=== PATIENT | male | born 1990 | race Caucasian/White ===

== ENCOUNTER 2016-09-01 07:32 | Emergency (ER) | payer MEDICAID ==
[~2016-09-01] VITALS: Ht 175.3 cm; Wt 98.0 kg
[2016-09-01] MEDS ORDERED: ONDANSETRON 4MG ODT PO STA (07:57)
[2016-09-01] MEDS ORDERED: LORAZEPAM 1MG TABLET PO ONE (08:00)
[2016-09-01 08:17] LABS: BASOPHILS % 0.5 % (0.0-2.0); EOSINOPHILS % 5.5 % (0.0-5.0); HEMATOCRIT. 52.5 % (42.0-52.0); HEMOGLOBIN. 18.2 g/dL (14.0-18.0); LYMPHOCYTES % 22.4 % (20.0-50.0); MEAN CORPUSCULAR HEMOGLOBIN 30.2 pg (28.0-32.0); MEAN PLATELET VOLUME 8.3 fl (7.4-10.4); MONOCYTES % 7.5 % (2.0-8.0); NEUTROPHILS % 64.1 % (40.0-76.0); PLATELET 207 x1000/uL (130-400); RED BLOOD CELL COUNT 6.03 mill/uL (4.7-6.1); RED CELL DISTRIBUTION WIDTH 13.7 % (11.6-14.6)
[2016-09-01 08:21] LABS: CHLORIDE 107 mEq/L (98-107)
[2016-09-01 08:30] LABS: CARBON DIOXIDE 25 mEq/L (21-32)
[2016-09-01 08:33] VITALS: BP 151/94
[2016-09-01 10:37] LABS: CLARITY URINE CLEAR (CLEAR); COLOR URINE YELLOW (YELLOW); GLUCOSE URINE NEGATIVE (NEGATIVE); KETONES URINE NEGATIVE (NEGATIVE); LEUKOCYTE ESTERASE URINE NEGATIVE (NEGATIVE); NITRITE URINE NEGATIVE (NEGATIVE); OCCULT BLOOD URINE 1+ (NEGATIVE); PROTEIN URINE 3+ (NEGATIVE); SPECIFIC GRAVITY URINE 1.016 (1.005-1.030); UROBILINOGEN URINE 0.2 E.U./dL (0.2-1.0)
== END 2016-09-01 11:42 | disposition home or self-care (01) ==
LOC: ER 08:34
DX: F41.1 Generalized anxiety disorder (principal); R50.9 Fever, unspecified; R10.9 Unspecified abdominal pain; I10 Essential (primary) hypertension; K76.0 Fatty (change of) liver, not elsewhere classified; N28.1 Cyst of kidney, acquired; K82.4 Cholesterolosis of gallbladder; R79.89 Other specified abnormal findings of blood chemistry; F17.210 Nicotine dependence, cigarettes, uncomplicated; F12.90 Cannabis use, unspecified, uncomplicated
CPT/HCPCS: 36415; 71010; 76705; 80053; 81001; 83690; 85025; 93005; 99285; Q0162; Z7610

== ENCOUNTER 2019-05-01 21:56 | Inpatient (IN) | payer BC, MEDICAID ==
[~2019-05-01] VITALS: Ht 175.3 cm; Wt 113.9 kg
[2019-05-01] MEDS ORDERED: SODIUM CHLORIDE 0.9% 1,000 ML IV ONE (22:31)
[2019-05-01] MEDS ORDERED: ONDANSETRON HCL 4MG/2ML INJ IV STA (22:31)
[2019-05-01 22:57] LABS: HEMATOCRIT. 50.1 % (42.0-52.0); HEMOGLOBIN. 16.9 g/dL (14.0-18.0); MEAN CORPUSCULAR HEMOGLOBIN 31.4 pg (28.0-32.0); MEAN CORPUSCULAR VOLUME 93.2 fL (80.0-94.0); MEAN PLATELET VOLUME 8.6 fl (7.4-10.4); PLATELET 209 x1000/uL (130-400); RED BLOOD CELL COUNT 5.38 mill/uL (4.7-6.1); RED CELL DISTRIBUTION WIDTH 13.3 % (11.6-14.6)
[2019-05-01] MEDS ORDERED: MORPHINE SULFATE 4 MG/ML CPJ (NOT FOR IM USE) IV ONE (23:00)
[2019-05-01] MEDS ORDERED: FAMOTIDINE 20MG/2ML VIAL IV ONE (23:00)
[2019-05-01 23:04] LABS: CHLORIDE 108 mEq/L (98-107)
[2019-05-01 23:05] LABS: INR 1.1; PROTHROMBIN TIME 10.9 sec (9.6-11.0)
[2019-05-01 23:10] LABS: ETHANOL BLOOD < 10 mg/dL
[2019-05-01 23:16] LABS: PLATELET ESTIMATE NORMAL
[2019-05-01] MEDS ORDERED: SODIUM CHLORIDE 0.9% 1000ML BAG (SEPSIS BOLUS) IV ONE (23:30)
[2019-05-01] MEDS ORDERED: PIPERACILLIN/TAZ 3.375G PREMIX 50 ML IV ONE (23:30)
[2019-05-01 23:53] LABS: CLARITY URINE CLEAR (CLEAR); COLOR URINE YELLOW (YELLOW); KETONES URINE TRACE (NEGATIVE); LEUKOCYTE ESTERASE URINE TRACE (NEGATIVE); NITRITE URINE NEGATIVE (NEGATIVE); OCCULT BLOOD URINE 1+ (NEGATIVE); PROTEIN URINE 3+ (NEGATIVE); SPECIFIC GRAVITY URINE 1.024 (1.005-1.030)
[2019-05-02 00:16] LABS: *BARBITURATES SCREEN URINE NEGATIVE (NEGATIVE); *BENZODIAZEPINES SCREEN URINE NEGATIVE (NEGATIVE); *COCAINE SCREEN URINE NEGATIVE (NEGATIVE); METHADONE URINE SCREEN NEGATIVE (NEGATIVE); OPIATES URINE SCREEN PRESUMTIVE POSITIVE (NEGATIVE); PHENCYCLIDINE URINE SCREEN NEGATIVE (NEGATIVE)
[2019-05-02 00:17] LABS: *AMPHETAMINES SCREEN URINE NEGATIVE (NEGATIVE); CANNABINOID URINE SCREEN PRESUMTIVE POSITIVE (NEGATIVE)
[2019-05-02] MEDS ORDERED: LEVOFLOXACIN 500MG PREMIX 100 ML IV NR (01:00)
[2019-05-02] MEDS: ONDANSETRON HCL 4MG/2ML INJ IV PRN ×2 (01:30→09:49)
[2019-05-02] MEDS: MORPHINE SULFATE 2 MG/ML CPJ (NOT FOR IM USE) IV PRN ×6 (01:30→21:51)
[2019-05-02 02:50] VITALS: BP 126/71
[2019-05-02] MEDS ORDERED: TOPUD PO (04:09)
[2019-05-02] MEDS ORDERED: CIPR500S3 PO (04:09)
[2019-05-02] MEDS ORDERED: OLME40TA18 PO (04:09)
[2019-05-02] MEDS ORDERED: AMLO10TA80 PO (04:09)
[2019-05-02] MEDS ORDERED: METR500T PO (04:09)
[2019-05-02 04:32] VITALS: BP 126/71
[2019-05-02] MEDS: DEXT 5%/0.45% NACL 1000ML 1,000 ML IV SCH ×2 (04:38→21:51)
[2019-05-02] MEDS: ACETAMINOPHEN 650MG SUPP PR PRN (04:38)
[2019-05-02] MEDS: METRONIDAZOLE 500 MG PREMIX 100 ML IV SCH ×4 (05:39→23:37)
[2019-05-02 08:00] VITALS: BP 139/73
[2019-05-02 12:00] VITALS: BP 145/76
[2019-05-02 16:00] VITALS: BP 128/67
[2019-05-02] MEDS: ACETAMINOPHEN 325MG TABLET PO PRN (19:49)
[2019-05-02 20:00] VITALS: BP 123/69
[2019-05-03] VITALS (7 sets, daily range): BP systolic 123–161; BP diastolic 72–86
[2019-05-03] MEDS ORDERED: LEVOFLOXACIN 500MG PREMIX 100 ML IV SCH (01:00)
[2019-05-03] MEDS: MORPHINE SULFATE 2 MG/ML CPJ (NOT FOR IM USE) IV PRN ×9 (01:07→22:48)
[2019-05-03] MEDS: LEVOFLOXACIN 500MG PREMIX 100 ML IV SCH (02:14)
[2019-05-03] MEDS: ACETAMINOPHEN 325MG TABLET PO PRN ×2 (04:31→20:12)
[2019-05-03] MEDS: METRONIDAZOLE 500 MG PREMIX 100 ML IV SCH ×3 (05:03→21:32)
[2019-05-03 07:28] LABS: HEMATOCRIT. 43.4 % (42.0-52.0); HEMOGLOBIN. 14.6 g/dL (14.0-18.0); MEAN CORPUSCULAR HEMOGLOBIN 31.7 pg (28.0-32.0); MEAN PLATELET VOLUME 8.5 fl (7.4-10.4); PLATELET 183 x1000/uL (130-400); RED BLOOD CELL COUNT 4.62 mill/uL (4.7-6.1); RED CELL DISTRIBUTION WIDTH 13.1 % (11.6-14.6)
[2019-05-03 08:49] LABS: CHLORIDE 110 mEq/L (98-107)
[2019-05-03] MEDS: ACETAMINOPHEN 650MG SUPP PR PRN (12:36)
[2019-05-03 13:05] LABS: PLATELET ESTIMATE NORMAL
[2019-05-03] MEDS: ONDANSETRON HCL 4MG/2ML INJ IV PRN (20:27)
[2019-05-03] MEDS: DEXT 5%/0.45% NACL 1000ML 1,000 ML IV SCH (21:32)
[2019-05-04] VITALS: BP 115/57
[2019-05-04] MEDS: LEVOFLOXACIN 500MG PREMIX 100 ML IV SCH (00:06)
[2019-05-04] MEDS: ONDANSETRON HCL 4MG/2ML INJ IV PRN ×3 (03:34→21:48)
[2019-05-04] MEDS: MORPHINE SULFATE 2 MG/ML CPJ (NOT FOR IM USE) IV PRN ×5 (03:34→21:49)
[2019-05-04] MEDS: ACETAMINOPHEN 325MG TABLET PO PRN ×3 (03:34→17:45)
[2019-05-04 04:00] VITALS: BP 124/66
[2019-05-04] MEDS: DEXT 5%/0.45% NACL 1000ML 1,000 ML IV SCH ×2 (05:40→19:40)
[2019-05-04] MEDS: METRONIDAZOLE 500 MG PREMIX 100 ML IV SCH ×3 (05:40→21:18)
[2019-05-04 07:18] LABS: HEMATOCRIT. 44.5 % (42.0-52.0); HEMOGLOBIN. 14.7 g/dL (14.0-18.0); MEAN CORPUSCULAR VOLUME 93.8 fL (80.0-94.0); MEAN PLATELET VOLUME 8.3 fl (7.4-10.4); PLATELET 209 x1000/uL (130-400); RED BLOOD CELL COUNT 4.74 mill/uL (4.7-6.1); RED CELL DISTRIBUTION WIDTH 13.3 % (11.6-14.6)
[2019-05-04 08:00] VITALS: BP 126/68
[2019-05-04 08:13] LABS: CHLORIDE 111 mEq/L (98-107)
[2019-05-04 09:44] LABS: PLATELET ESTIMATE NORMAL
[2019-05-04 12:00] VITALS: BP 123/65
[2019-05-04 16:00] VITALS: BP 125/64
[2019-05-04 20:00] VITALS: BP 131/109
[2019-05-05] VITALS: BP 143/43
[2019-05-05] MEDS: LEVOFLOXACIN 500MG PREMIX 100 ML IV SCH (00:06)
[2019-05-05] MEDS: ONDANSETRON HCL 4MG/2ML INJ IV PRN ×2 (02:31→23:44)
[2019-05-05] MEDS: MORPHINE SULFATE 2 MG/ML CPJ (NOT FOR IM USE) IV PRN ×5 (02:31→23:45)
[2019-05-05 04:00] VITALS: BP 131/75
[2019-05-05] MEDS: METRONIDAZOLE 500 MG PREMIX 100 ML IV SCH ×3 (05:56→21:06)
[2019-05-05 08:00] VITALS: BP 136/74
[2019-05-05 08:03] LABS: HEMATOCRIT. 43.1 % (42.0-52.0); HEMOGLOBIN. 14.4 g/dL (14.0-18.0); MEAN CORPUSCULAR HEMOGLOBIN 31.2 pg (28.0-32.0); MEAN CORPUSCULAR VOLUME 93.1 fL (80.0-94.0); MEAN PLATELET VOLUME 7.9 fl (7.4-10.4); PLATELET 229 x1000/uL (130-400); RED BLOOD CELL COUNT 4.63 mill/uL (4.7-6.1); RED CELL DISTRIBUTION WIDTH 13.1 % (11.6-14.6)
[2019-05-05 08:08] LABS: CHLORIDE 110 mEq/L (98-107)
[2019-05-05] MEDS: DEXT 5%/0.45% NACL 1000ML 1,000 ML IV SCH ×2 (10:57→23:45)
[2019-05-05 12:00] VITALS: BP 140/75
[2019-05-05 13:20] LABS: PLATELET ESTIMATE NORMAL
[2019-05-05 16:00] VITALS: BP 138/72
[2019-05-05] MEDS: ACETAMINOPHEN 325MG TABLET PO PRN (18:09)
[2019-05-05 20:00] VITALS: BP 132/68
[2019-05-06] VITALS: BP 116/65
[2019-05-06] MEDS: LEVOFLOXACIN 500MG PREMIX 100 ML IV SCH (02:08)
[2019-05-06] MEDS: MORPHINE SULFATE 2 MG/ML CPJ (NOT FOR IM USE) IV PRN ×5 (03:58→23:46)
[2019-05-06 04:00] VITALS: BP 122/62
[2019-05-06] MEDS: METRONIDAZOLE 500 MG PREMIX 100 ML IV SCH ×3 (05:01→21:32)
[2019-05-06 08:00] VITALS: BP 121/77
[2019-05-06] MEDS: DEXT 5%/0.45% NACL 1000ML 1,000 ML IV SCH ×2 (12:16→23:46)
[2019-05-06] MEDS: ONDANSETRON HCL 4MG/2ML INJ IV PRN ×2 (16:18→23:46)
[2019-05-06 20:00] VITALS: BP 132/68
[2019-05-07] VITALS: BP 118/64
[2019-05-07] MEDS: LEVOFLOXACIN 500MG PREMIX 100 ML IV SCH (00:47)
[2019-05-07] MEDS: MORPHINE SULFATE 2 MG/ML CPJ (NOT FOR IM USE) IV PRN ×3 (01:51→08:40)
[2019-05-07 04:00] VITALS: BP 127/66
[2019-05-07] MEDS: METRONIDAZOLE 500 MG PREMIX 100 ML IV SCH (05:02)
[2019-05-07 08:00] VITALS: BP 116/66
[2019-05-07 10:55] VITALS: BP 116/66
== END 2019-05-07 11:55 | disposition home or self-care (01) | DRG 392 ==
LOC: ER 21:56 → EDBEDREQSVC 05-02 00:04 → ENRESERV 05-02 01:33 → 7WST 05-02 03:38
PROVIDERS: ADMIT Hospitalist; ATTEND Hospitalist
DX: K57.20 Diverticulitis of large intestine with perforation and abscess without bleeding (principal); N17.9 Acute kidney failure, unspecified; F12.90 Cannabis use, unspecified, uncomplicated; F41.9 Anxiety disorder, unspecified; I12.9 Hypertensive chronic kidney disease with stage 1 through stage 4 chronic kidney disease, or unspecified chronic kidney disease; N18.9 Chronic kidney disease, unspecified; N28.1 Cyst of kidney, acquired; D72.829 Elevated white blood cell count, unspecified; K59.00 Constipation, unspecified; Z82.49 Family history of ischemic heart disease and other diseases of the circulatory system
CPT/HCPCS: 36415; 74018; 74176; 80053; 80305; 80320; 81003; 83605; 83735; 85025; 86850; 86900; 93005; 96365; 96367; 96375; 99291; J1956; J2270; J2405; J2543; J3490; J7030; G0480

== ENCOUNTER 2022-11-28 01:48 | Emergency (ER) | payer BC, MEDICAID ==
[~2022-11-28] VITALS: Ht 175.3 cm; Wt 105.0 kg
[~2022-11-28 01:48] MED LIST: AMLO10TA80 PO; CIPR500S3 PO; OLME40TA18 PO; TOPUD PO
[2022-11-28 01:57] VITALS: BP 126/79; PULSE 60; RESP 16; TEMP 98.6; O2SAT 99
[2022-11-28] MEDS ORDERED: ASPIRIN 325MG EC TABLET PO ONE (02:15)
[2022-11-28] MEDS ORDERED: ONDANSETRON HCL 4MG/2ML INJ IV ONE (02:15)
[2022-11-28] MEDS ORDERED: MORPHINE SULFATE 4 MG/ML CPJ (NOT FOR IM USE) IV ONE ×2 (02:15→06:30)
[2022-11-28 03:00] LABS: BASOPHILS % 0.7 % (0.0-2.0); EOSINOPHILS % 2.1 % (0.0-5.0); HEMATOCRIT. 48.7 % (42.0-52.0); HEMOGLOBIN. 16.6 g/dL (14.0-18.0); LYMPHOCYTES % 21.3 % (20.0-50.0); MEAN CORPUSCULAR HEMOGLOBIN 32.1 pg (28.0-32.0); MEAN CORPUSCULAR HGB CONC 34.1 g/dL (31.0-37.0); MEAN CORPUSCULAR VOLUME 94.2 fL (80.0-94.0); MEAN PLATELET VOLUME 7.8 fl (7.4-10.4); MONOCYTES % 10.6 % (2.0-8.0); NEUTROPHILS % 65.3 % (40.0-76.0); PLATELET 222 x1000/uL (130-400); RED BLOOD CELL COUNT 5.17 mill/uL (4.7-6.1); RED CELL DISTRIBUTION WIDTH 13.5 % (11.6-14.6); WHITE BLOOD COUNT 7.7 x1000/uL (4.5-11.0)
[2022-11-28 03:09] LABS: CHLORIDE 107 mEq/L (98-107); INDEX HEMOLYSI 1 (1-3); INDEX ICTERIC 1 (1-4); INDEX LIPEMIC 1 (1-3); POTASSIUM 4.5 mEq/L (3.5-5.1); SODIUM 135 mEq/L (136-145)
[2022-11-28 03:19] LABS: ALANINE AMINOTRANSFERASE 39 IU/L (13-61); ALBUMIN 3.3 g/dL (3.4-5.0); ASPARTATE AMINOTRANSFERASE 22 IU/L (15-37); BILIRUBIN TOTAL 0.4 mg/dL (0.1-1.0); CALCIUM 8.6 mg/dL (8.5-10.1); CARBON DIOXIDE 25 mEq/L (21-32); CREATININE 2.3 mg/dL (0.6-1.3); ETHANOL BLOOD < 10 mg/dL (-10); GLUCOSE 109 mg/dL (70-105); NT PRO B-TYPE NATRIURETIC PEP 100 pg/mL (5-125); PROTEIN TOTAL 7.9 g/dL (6.0-8.3); TROPONIN I HIGH SENSITIVITY 5 ng/L (<78); UREA NITROGEN BLOOD 26 mg/dL (7-21)
[2022-11-28 03:53] LABS: INDEX HEMOLYSI 1 (1-3)
[2022-11-28 03:56] LABS: AMYLASE 185 IU/L (25-115)
[2022-11-28] MEDS ORDERED: MORPHINE SULFATE 4 MG/ML CPJ (NOT FOR IM USE) IV NR (05:00)
[2022-11-28] MEDS ORDERED: ASPIRIN 325MG EC TABLET PO NR (05:00)
[2022-11-28] MEDS ORDERED: ONDANSETRON HCL 4MG/2ML INJ IV NR (05:00)
[2022-11-28] MEDS ORDERED: ONDA4TAB50 MT (06:26)
[2022-11-28] MEDS ORDERED: HYDR-4009 MT (06:26)
[2022-11-28] MEDS ORDERED: MAG355OR21 MT (06:26)
[2022-11-28] MEDS ORDERED: SODIUM CHLORIDE 0.9% 500 ML IV ONE (06:30)
[2022-11-28 07:32] LABS: *AMPHETAMINES SCREEN URINE NEGATIVE (NEGATIVE); *BARBITURATES SCREEN URINE NEGATIVE (NEGATIVE); *BENZODIAZEPINES SCREEN URINE NEGATIVE (NEGATIVE); *COCAINE SCREEN URINE NEGATIVE (NEGATIVE); CANNABINOID URINE SCREEN NEGATIVE (NEGATIVE); ECSTASY MDMA SCREEN URINE NEGATIVE (NEGATIVE); METHADONE URINE SCREEN NEGATIVE (NEGATIVE); OPIATES URINE SCREEN PRESUMTIVE POSITIVE (NEGATIVE); PHENCYCLIDINE URINE SCREEN NEGATIVE (NEGATIVE)
== END 2022-11-28 08:24 | disposition home or self-care (01) ==
LOC: ER 01:48 → CANBEDREQ 07:19 → ER 08:24
DX: R06.00 Dyspnea, unspecified (principal); R10.13 Epigastric pain; N28.9 Disorder of kidney and ureter, unspecified; I10 Essential (primary) hypertension; F12.10 Cannabis abuse, uncomplicated; Z00.00 Encounter for general adult medical examination without abnormal findings
CPT/HCPCS: 80053; 80305; 80320; 82150; 83880; 83605; 83690; 85025; 84484; 36415; 71045; 74176; 93005; 96360; 99285; J2405; J2270; J7040; Z7610 ×3; G0480